=== PATIENT | male | born 1965 | race Caucasian/White ===

== ENCOUNTER → 2016-10-05 | Outpatient (CLI) | payer BC ==
--- NOTE | 2016-10-05 11:30 | DIAGNOSTIC IMAGING REPORT ---
RIGHT HIP UNILATERAL 2 VIEWS CLINICAL HISTORY: Right hip pain. COMPARISON: Pelvis radiograph March 27, 2014. FINDINGS: Alignment of the right hip is anatomic. No fracture or suspicious lesion is present. There is moderate osteophytosis of the right hip. An ossicle along the acetabulum is unchanged. There is no evidence for avascular necrosis. IMPRESSION: 1. No acute fracture or dislocation of the right hip. 2. Moderate osteophytosis of the right hip with preserved joint space. Electronically signed by: Dennis Infante M.D. 10/05/2016 11:29 AM Dictated Date/Time: 10/05/2016 11:28 AM
--- NOTE | 2016-10-05 11:31 | DIAGNOSTIC IMAGING REPORT ---
LUMBAR SPINE 5 VIEWS CLINICAL HISTORY: Chronic low back pain. FINDINGS: 5 views of the lumbar spine are compared to study dated 03/27/2014. The skeletal structures are well mineralized. There is no radiographic evidence of fracture or malalignment. Vertebral body height and alignment are maintained. There is straightening of the lumbar lordosis. Anterior osteophytes are seen throughout. The transverse and spinous processes are intact. There is no evidence of spondylolysis. There is mild degenerative disc space narrowing at L5-S1. The remaining intervertebral disc spaces are well-maintained. The visualized bony pelvis appears intact. Sclerotic change is noted involving the sacroiliac joints. There is a nonobstructed abdominal bowel gas pattern. IMPRESSION: 1. No acute bony abnormalities seen involving the lumbosacral spine. 2. Mild spondylotic change as above. Electronically signed by: Richi Jones M.D. 10/05/2016 11:30 AM Dictated Date/Time: 10/05/2016 11:29 AM
== END | disposition home or self-care (01) ==
LOC: C.RADPV 10:49
PROVIDERS: ATTEND Family Medicine
DX: M25.551 Pain in right hip (principal); M54.40 Lumbago with sciatica, unspecified side

== ENCOUNTER → 2016-11-18 | Outpatient (CLI) | payer BC ==
--- NOTE | 2016-11-18 17:25 | DIAGNOSTIC IMAGING REPORT ---
ADDENDUM Following consultation with Dr. Joe, reevaluation of the patient is MRI confirms the presence of a focal right lateral disc herniation at L2-L3 as well as at L1-L2. These are primarily right lateral in position. The transaxial images are most prominent at the L2-L3 level. Possibility of small extruded disc fragment compromising the right neuroforamina and L2-L3 is considered.. The L1-L2 finding relates to right lateral bulging disc component.. Electronically signed by: Ismael Sorto M.D. 11/22/2016 9:30 AM Dictated Date/Time: 11/22/2016 9:28 AM ORIGINAL REPORT LUMBAR SPINE MRI HISTORY: Back pain. Radiculopathy. BACK PAIN TECHNIQUE: Multiplanar multisequence MRI of the lumbar spine was performed without the use of contrast. COMPARISON: None. FINDINGS: For the purpose of the report the L5-S1 disc space will be located on axial image 27 of 30. Mild degenerative disc changes throughout. Body stature is normal. No bone marrow replacing process. L1-L2: Minimal broad-based disc bulge. L2-L3: Minimal broad-based disc bulge. L3-L4: Mild left central disc bulge. L4-L5: Mild central disc bulge. L5-S1: No significant central canal or neural foraminal narrowing. IMPRESSION: Mild disc bulges L1-L4. No evidence for major disc herniation or significant component of spinal stenosis. Electronically signed by: Ismael Sorto M.D. 11/18/2016 5:24 PM Dictated Date/Time: 11/18/2016 5:22 PM
== END | disposition home or self-care (01) ==
LOC: C.MRIBC 16:32
PROVIDERS: ATTEND Orthopaedic Surgery Orthopaedic Surgery of the Spine
DX: M51.26 Other intervertebral disc displacement, lumbar region (principal)

== ENCOUNTER → 2017-01-02 | Outpatient (CLI) | payer BC ==
[2017-01-02 12:21] LABS: CHOLESTEROL/HDL RATIO 3.6
== END | disposition home or self-care (01) ==
LOC: C.LABPVFM 07:24
PROVIDERS: ATTEND Family Medicine
DX: Z13.21 Encounter for screening for nutritional disorder (principal)